=== PATIENT | male | born 2000 | race Caucasian/White ===

== ENCOUNTER 2021-09-16 15:52 | Emergency (ER) | payer OTHER, SELFPAY ==
[~2021-09-16] VITALS: Ht 167.6 cm; Wt 65.9 kg
[2021-09-16] MEDS ORDERED: KETOROLAC 30 MG/ML 1ML VIAL IM ONE (18:25)
[2021-09-16 18:32] VITALS: BP 130/70
== END 2021-09-16 18:40 | disposition home or self-care (01) ==
LOC: M ED 15:52
DX: S82.431A Displaced oblique fracture of shaft of right fibula, initial encounter for closed fracture (principal); X50.1XXA Overexertion from prolonged static or awkward postures, initial encounter; Y93.02 Activity, running; Y99.1 Military activity; Y92.828 Other wilderness area as the place of occurrence of the external cause
CPT/HCPCS: 73610; 96372; 99283; J1885